=== PATIENT | female | born 1990 | race African-American/Black ===

== ENCOUNTER 2018-05-05 16:17 | Outpatient (CLI) | payer MEDICAID | END 2018-05-05 16:18 | disposition home or self-care (01) | LOC: BICRAD 16:17 | PROVIDERS: ATTEND Family Medicine | DX: S90.122A Contusion of left lesser toe(s) without damage to nail, initial encounter (principal); S92.525A Nondisplaced fracture of middle phalanx of left lesser toe(s), initial encounter for closed fracture ==

== ENCOUNTER 2018-09-10 21:39 | Day surgery (SDC) | payer MEDICAID, OTHER ==
--- NOTE | 2018-09-10 21:54 | PDOC.EVN ---
Event Note - Event Note Event Note: OBGYN TOW CAR DRIVER Patient arrival in the ED: DX: first trimester ab I was notified about [address] Julio first, then the transfer center , that a patient at "8 weeks" was seen at [facility] for "miscarriage" with "blood loss". She was sent here for evaluation. She has just arrived to the ED here. I discussed the case with Dr León in the ED. She is non-tachycardic here and afebrile. By Mau report, she recieved 4 units of PRBC at the [facility], although it is not clear the indication as not overtly tachycardic at that time (per Dr León). Her HCT was 32 by report pre-transfusion. I have requested: CBC here stat CMP stat Sono to see if retained POC Type and RH I have called the OR in case we need to proceed to D&C, but ED will do first screen as seems to be stable at this time. Complete ab vs Incomplete? Dr Julio has transferred care of patient to us.
[2018-09-10] MEDS ORDERED: Fentanyl 100 MCG/2 ML VIAL ONE (21:56)
[2018-09-10] MEDS ORDERED: Midazolam HCl 2 mg/2 ml Vial ONE (21:56)
[2018-09-10] MEDS ORDERED: KETAMINE 100 MG/ML (5ML VIAL) ONE (21:56)
[2018-09-10 22:27] LABS: #Lymphocytes 1.5 thou/uL (1.20-3.40); #Monocytes 0.5 thou/uL (0.11-0.59); #Neutrophils 7.9 thou/uL (1.40-6.50); %Basophils 0.2 % (0.0-1.0); %Eosinophils 0.4 % (0.0-10.0); %Lymphocytes 14.6 % (21.0-51.0); %Monocytes 5.4 % (0.0-10.0); %Neutrophils 79.4 % (42.0-75.0); Hemoglobin 11.2 g/dL (12.0-16.0); Mean Corpuscular HGB CONC 32.5 g/dL (32.0-36.0); Mean Corpuscular Hemoglobin 25.4 pg (27.0-31.0); Mean Platelet Volume 7.8 fL (7.4-10.4); Platelet Count 286 thou/uL (130-400); RBC Distribution Width 15.9 % (11.5-14.5)
[2018-09-10 22:45] LABS: ALT (SGPT) 13 U/L (8-55); AST (SGOT) 14 U/L (5-34); Albumin 3.5 g/dL (3.5-5.0); Alkaline Phosphatase 65 U/L (40-150); Anion Gap 12 mmol/L (10-20); BUN (Urea Nitrogen) 8 mg/dL (7.0-18.7); Bilirubin, Total 0.3 mg/dL (0.2-1.2); Calc. Creatinine Clearance 0 mL/min (70-130); Calcium 8.4 mg/dL (7.8-10.44); Carbon Dioxide 20 mmol/L (22-29); Chloride 111 mmol/L (98-107); Estimated GFR-MDRD Greater than 90; Globulin 3.1 g/dL (2.4-3.5); Glucose 99 mg/dL (70-105); Potassium 4.3 mmol/L (3.5-5.1); Protein, Total 6.6 g/dL (6.0-8.3); Sodium 139 mmol/L (136-145)
--- NOTE | 2018-09-10 22:54 | PDOC.EVN ---
Event Note - Event Note Event Note: Lab check: Hct 34 CMP normal BHCG was 2838 RH positive Sono images seen by me..complete AB?
--- NOTE | 2018-09-10 23:05 | ULT ---
PELVIC ULTRASOUND: History: Heavy vaginal bleeding. Evaluate for retained product of conception. Comparison: None. Technique: Transabdominal and endovaginal imaging of the pelvis was performed. Ovaries were interroga ardha with grayscale, color flow, and doppler imaging with waveform analysis. FINDINGS: The uterus is identified and measures 11.4 x 4.7 x 6.6 cm. Limited evaluation of the endometrium. The re is heterogeneous echotexture in the visualized portions of the endometrium. Kicking Machine Operator reports an open cervix with abnormal echotexture measuring approximately 1.8 cm. Right ovary has a normal echotexture measuring 3.3 x 1.5 x 3.1 cm. Left ovary has a normal echotextur e measuring 1.1 x 2.4 x 1.7 cm. There is no free fluid. Vascular flow to both ovaries. There is increased vascular flow in the right aspect of the uterus at the level of the fundus. Findin gs are nonspecific. IMPRESSION: Thickened and heterogeneous endometrium and lower uterine segment. Kicking Machine Operator suggests that the lowe r uterine segment may be patent. Findings may represent active bleeding. The possibility of retained products of conception cannot be excluded. Correlate with serum beta HCG. Follow up imaging should be performed. POS: MIGUEL
[2018-09-10] MEDS ORDERED: Misoprostol 200 MCG TAB VAG SCH (23:15)
--- NOTE | 2018-09-11 00:04 | PDOC.EVN ---
Event Note - Event Note Event Note: OBGYN: Patient seen at bedside in ED bed 11. Cytotec placed PV (800mcg) per ACOG protocol at 2340. Patient offered D&C but preferred non-surgical option. See full dictation.
--- NOTE | 2018-09-11 00:31 | HP ---
LOCATION: ER, bed 11. TIME OF EVALUATION: 23:20 to 23:45 REASON FOR EVALUATION: Suspected miscarriage in the first trimester, patient transferred from the [facility]. This patient also has an entry in the EMR as an event note prior to this H and P, I would direct the reader to that entry for more information. HISTORY OF PRESENT ILLNESS: In brief, this is a 28-year-old , 3, para 1 with one prior miscarriage who was at about 8 weeks gestation, who had not yet established care for this , who first presented to the [facility] for vaginal bleeding. There, they contacted Dr. Julio, who stated that she should probably be transferred to [place] as there is no FAST FOOD SERVER coverage at the [facility]. At the [facility], she received 4 units of packed red blood cells, although according to Dr. León in the emergency department here, she was not overtly symptomatic or tachycardic by report. When she arrived here, she underwent a full laboratory evaluation as well as an ultrasound. On ultrasound in the emergency department, there is the appearance of an endometrial stripe with maybe a small collection at the fundus that may be a small amount of retained products. PAST MEDICAL HISTORY: Negative. OB HISTORY: Significant for one vaginal delivery which was her last . Her first was a miscarriage, followed by the vaginal , and then this . PAST SURGICAL HISTORY: None. ALLERGIES: NONE. PHYSICAL EXAMINATION: VITAL SIGNS: Currently, her pulse is in 70s and blood pressure is 120s/80s. GENERAL: She is in no acute distress, she is alert and oriented. ABDOMEN: Soft and nontender. I performed a speculum examination and find the cervix to be visually closed. There is a small amount/minimal amount of transcervical bleeding. There is no evidence of acute hemorrhage or blood loss. LABORATORY DATA: Hematocrit in the ER here at [place] is 34, CMP is normal. Beta HCG was 2838. Blood type is Rh positive. ASSESSMENT: This is a patient who probably is now at a complete miscarriage stage. She received 4 units at the [facility], but the indication for that many units of blood is not clear from my verbal report. Nonetheless, the patient appears to be hemodynamically stable now. I discussed with her at length surgical D and C, although I do feel that medical management with Cytotec 800 mcg would suffice as the ultrasound is not overtly impressive for retained products. Additionally, her cervix is closed. The patient would like to avoid surgical intervention if possible. I feel that medical management is an option and a valid choice based on the ultrasound findings, and hemodynamic stability at this time. PLAN: 1. Cytotec 800 mcg (four tablets) was placed inside the vagina at 23:40. Each tablet was moistened and placed in the posterior fornix per protocol. 2. I have advised the patient to follow up tomorrow at [facility] [place] or on 09/13 since 09/12 is likely to be closed due to the holiday. 3. She is Rh positive, so no need for RhoGAM. 4. No acute indication for admission at this time. 5. The patient is aware that surgical D and C is an option, but would like to avoid surgery if possible. Risks and benefits of surgical versus medical management and vice versa were also discussed. Job ID: [id number]
[2018-09-11] MEDS ORDERED: cefTRIAXone\\ROCEPHIN 1 GM in Sodium Chloride 0.9% 100 ML IVPB SCH (01:30)
[2018-09-11] MEDS ORDERED: Lactated Ringer's 1,000 ML IV SCH ×2 (01:30→02:45)
[2018-09-11] MEDS ORDERED: Azithromycin 1,000 MG in Sodium Chloride 0.9% 500 ML IVPB SCH (01:30)
[2018-09-11] MEDS ORDERED: cefTRIAXone\\ROCEPHIN 1 GM VIAL ONE (01:32)
[2018-09-11] MEDS ORDERED: Midazolam HCl 2 mg/2 ml Vial ONE (01:40)
[2018-09-11] MEDS ORDERED: Fentanyl 100 MCG/2 ML VIAL ONE (01:40)
--- NOTE | 2018-09-11 01:41 | PDOC.EVN ---
Event Note - Event Note Event Note: Preop D&C note dictated DX: Persistent Vag Bleed despite vaginal Cytotec Plan: Consented for OB D&C; OR aware.
--- NOTE | 2018-09-11 01:42 | PRG ---
DATE OF SERVICE: 09/11/2018 PREOPERATIVE D AND C FOR DILATION AND CURETTAGE NOTE TIME OF EVALUATION: 0125 hours. LOCATION: ER bed 11. HISTORY: In brief, I was contacted by the patient's nurse prior to anticipated discharge from the emergency room, and status post vaginal Cytotec, that the patient was having persistent vaginal bleeding. I assessed the patient at bedside at 0115 hours and I did find that she was having some persistent passage of clots that were in volume about 200 mL. The patient's pulse is still in the 80s, and blood pressures 120/80s to 130s/90s. Due to the persistent passage of clots despite Cytotec, I have decided on surgical evacuation of the uterine cavity. The patient is aware that this is being done in an attempt to stop the bleeding. I have contacted Kathy, the radar operator in the OR, and she is aware. We are getting the room ready. The patient does accept surgical evacuation at this time as a way to prevent further bleeding. Job ID: [id number]
[2018-09-11] MEDS ORDERED: Carboprost 250 MCG/ML AMP ONE (02:22)
--- NOTE | 2018-09-11 02:42 | PDOC.EVN ---
Event Note - Event Note Event Note: OP NOTE Full op note dictated procedure: sono guided suction curettage Derek Sotelo guide: Omero Disla () GETCarmen Rocepalvaron/Zmtracy given intraop (1 gram each) EBL 500 due to brisk ut bleed POC abundant and sent to pathology Vitals stable. To RR.
[2018-09-11] MEDS ORDERED: Promethazine HCl 25 MG/ML VIAL IM/IV PRN (02:44)
--- NOTE | 2018-09-11 03:17 | OP ---
DATE OF PROCEDURE: 09/11/2018 TIME OF PROCEDURE: Roughly 02:15 or so. LOCATION: [facility]. PREOPERATIVE DIAGNOSIS: Incomplete miscarriage with persistent bleeding despite medical management. POSTOPERATIVE DIAGNOSES: 1. Incomplete miscarriage with persistent bleeding despite medical management. 2. Status post sono-guided dilation and curettage. PROCEDURES PERFORMED: 1. Sono-guided (transabdominal). 2. Suction curettage (no sharp curettage). LEGAL PRACTICE MANAGER: Dr. Omero Will with Family Medicine, who provided the transabdominal ultrasound guidance. ANESTHESIA: General endotracheal. IV FLUIDS: About 800 mL crystalloid. URINE OUTPUT: By in- and out catheter about 600 mL. ESTIMATED BLOOD LOSS: About 500 mL which is a blood in the suction canister as well as in the catch drape. FINDINGS: 1. The patient has a large amount of blood clot in the vaginal area, which was sent to pathology in case there were retained products. 2. There are products of conception seen transversing the suction catheter. 3. There is no evidence of perforation via transabdominal ultrasound. 4. Hemostasis postprocedure. 5. One and half containers of specimen were collected and sent to pathology. COMPLICATIONS: None. COUNTS: Correct. PATHOLOGY: Uterine contents. INDICATIONS FOR PROCEDURE: The patient was given Cytotec in the ER for attempted medical management, but due to persistent bleeding, the decision was made to proceed with suction curettage. DESCRIPTION OF PROCEDURE: The patient was transferred to the [facility] where she was placed under general endotracheal anesthesia. She was positioned in dorsal lithotomy with candy-cane stirrups and all pressure points were adequately padded. Deep hyperflexion and external rotation were avoided during the positioning process. In and out catheterization of the bladder revealed clear urine for about 600 mL total. We then placed a Graves bivalve speculum for visualization of the cervix. Cervix was seen and noted to be dilated. We did perform suction curettage without dilation using a #7 curved plastic curette. Machine vacuum was kept at 50 mmHg. We then performed a vigorous suction curettage without the need for sharp curettage. A container and a half was filled with tissue and this was sent to pathology. At the end of the procedure, which was uncomplicated, we felt confident that there was no perforation or retained tissue based on the transabdominal images provided by Dr. Omero Will who is a rn residential who helped with the procedure. It is important to note that the ultrasound was limited based on the patient's BMI. At the end of the procedure, we were confident that there was no further bleeding and all instruments were removed from the patient's vault. We discussed with anesthesia, the patient's vitals and vital seems stable with no evidence of hypotension. The patient's pulse was in the low 100, but this was felt to be due to some of the uterine manipulation/medication. The patient did receive 250 mcg of Hemabate x1 during the procedure. No methargen or Pitocin was administered. At the end of the procedure, all counts were correct, no pads were left inside the vagina, and she seemed to tolerate the procedure well. It is our plan to send the patient to recovery where she is stable based on her vital signs for possible discharge after routine recovery. Job ID: [id number]
[2018-09-11] MEDS ORDERED: Dexamethasone 20 MG/5 ML VIAL ONE (20:24)
[2018-09-11] MEDS ORDERED: Lidocaine 1% PF 5 ML VIAL ONE (20:24)
[2018-09-11] MEDS ORDERED: Ondansetron PF 4 MG/2 ML Vial ONE (20:24)
[2018-09-11] MEDS ORDERED: PROPOFOL 200 MG/20 ML VIAL ONE (20:24)
[2018-09-11] MEDS ORDERED: Succinylcholine Chloride 20 MG/ML 10 ml SYRINGE FS ONE (20:24)
== END 2018-09-11 04:25 | disposition home or self-care (01) ==
LOC: ERS 21:39 → SDC/OP 09-11 01:48
PROVIDERS: ATTEND Obstetrics & Gynecology
PROC: 10D17ZZ Extraction of Products of Conception, Retained, Via Natural or Artificial Opening (ICD-10-PCS; principal; 2018-09-11)
DX: O03.1 Delayed or excessive hemorrhage following incomplete spontaneous abortion (principal)
CPT/HCPCS: 36415; 76856; 80053; 84702; 85025; 86850; 86900; 86901; 88305; 96374; J0456; J0696; J1100; J2001; J2250; J2405; J2704; J3010; J3490; J7050

== ENCOUNTER 2024-04-09 11:14 | Outpatient (CLI) | payer OTHER | END 2024-04-09 11:15 | disposition home or self-care (01) | LOC: BICULT 11:14 | PROVIDERS: ATTEND Obstetrics & Gynecology | DX: N60.09 Solitary cyst of unspecified breast (principal); N63.12 Unspecified lump in the right breast, upper inner quadrant | CPT/HCPCS: 77066; G0279 ==